=== PATIENT | male | born 1985 | race Caucasian/White ===

== ENCOUNTER 2019-05-10 11:52 | Emergency (ER) | payer BC, OTHER ==
[~2019-05-10] VITALS: Ht 175.3 cm; Wt 103.3 kg
[2019-05-10] MEDS ORDERED: LEXAPRO20 MG PO (12:02)
[2019-05-10 12:38] LABS: URINE BILIRUBIN NEGATIVE (Negative); URINE BLOOD NEGATIVE (Negative); URINE CLARITY CLEAR; URINE COLOR YELLOW; URINE GLUCOSE-RANDOM NEGATIVE (Negative); URINE KETONES NEGATIVE (Negative); URINE LEUKOCYTES-REFLEX NEGATIVE (Negative); URINE NITRITE-REFLEX NEGATIVE (Negative); URINE PROTEIN NEGATIVE (Negative); URINE SPECIFIC GRAVITY 1.025 (1.005-1.030); URINE UROBILINOGEN 0.2 E.U./dl (0.2-1.0)
[2019-05-10 12:42] LABS: ABSOLUTE BASOPHILS 0.1 thou/uL (0.0-0.2); ABSOLUTE EOSINOPHILS 0.4 thou/uL (0.0-0.7); ABSOLUTE LYMPHOCYTES 2.1 thou/uL (0.8-5.3); ABSOLUTE MONOCYTES 0.5 thou/uL (0.0-1.2); ABSOLUTE NEUTROPHILS 5.5 thou/uL (1.6-8.1); BASOPHILS 0.9 %; EOSINOPHILS 4.6 %; HEMATOCRIT 46.4 % (42.0-52.0); HEMOGLOBIN 16.3 gm/dL (14.0-18.0); MCH 30.7 pg (26.0-34.0); MCHC 35.1 g/dL (28.0-37.0); MCV 87.3 fL (80.0-100.0); MONOCYTES 5.7 %; MPV 8.8 fl. (7.2-11.1); NUCLEATED RBCS 0 /100WBC; PLATELET COUNT* 203 thou/uL (150-400); POLYS 63.8 %; RBC 5.31 mil/uL (4.50-6.00); RDW-CV 12.9 % (10.5-14.5); WBC 8.5 thou/uL (4.0-11.0)
[2019-05-10 12:45] LABS: CALCIUM 8.4 mg/dL (8.5-10.1); CREATININE 1.1 mg/dL (0.6-1.3); POTASSIUM 3.9 mmol/L (3.5-5.1)
[2019-05-10 12:50] LABS: ALBUMIN 3.7 g/dL (3.4-5.0); TOTAL BILIRUBIN 0.5 mg/dL (<0.1-1.0); TOTAL PROTEIN 7.2 g/dL (6.4-8.2)
[2019-05-10] MEDS ORDERED: BENTYL 20 MG TA20 M1 PO (13:46)
[2019-05-10] MEDS ORDERED: NABUMETONE 750750 M1 PO (13:46)
[2019-05-10 13:56] VITALS: BP 130/93
== END 2019-05-10 13:56 | disposition home or self-care (01) ==
LOC: M.ERS 11:52
PROVIDERS: Nurse Practitioner Family
DX: R10.31 Right lower quadrant pain (principal); F32.9 Major depressive disorder, single episode, unspecified; K58.9 Irritable bowel syndrome, unspecified; F17.200 Nicotine dependence, unspecified, uncomplicated; Z86.018 Personal history of other benign neoplasm; Z88.1 Allergy status to other antibiotic agents